=== PATIENT | female | born 1990 | race Caucasian/White ===

== ENCOUNTER 2016-06-13 22:53 | Observation (INO) | payer BC ==
[~2016-06-13] VITALS: Ht 162.6 cm; Wt 104.9 kg
[~2016-06-13 22:53] MED LIST: AZIT500T PO; CEFP200T PO; D-ME-89 PO; GUAI118L3 PO; IPRA3AMP NEB; MENT7.6L2 MM; PRED20TA PO; [UNRECOGNIZED DRUG - OTHER]
--- NOTE | 2016-06-13 23:00 | ED.ADGEN ---
Past History Past Medical History: Bronchitis, Other Past Surgical History: Other Alcohol Use: None Drug Use: None Adult General Chief Complaint Chief Complaint " I think I got something suck up my butt...".. " We were trying something new.. a rectal plug.. .. It is stainless steel... looks like a spade... .. but it got away from us.. and we can't get it out...I tried to get it out for some time now.. I could feel it with my fingers.. but it got too painful.. I was afraid I hurt myself... " HPI HPI Patient is a 25 year old female who presents with stainless steel rectal plug foreign body in her rectum. Patient complains of lower rectal pain from attempts to remove it. Patient does have a hemorrhoid and some bleeding at tear or fissure at the base of the hemorrhoid. Patient last ate food at and fluids approximately 2100 hrs. Patient denies any history of bleeding disorders or coagulopathic meds. Plug was inserted for additional stimulation during intercourse. Review of Systems Review of Systems Constitutional: Denies fever or chills [] Eyes: Denies change in visual acuity, redness, or eye pain [] HENT: Denies nasal congestion or sore throat [] Respiratory: Denies cough or shortness of breath [] Cardiovascular: No additional information not addressed in HPI [] GI: Denies abdominal pain, nausea, vomiting, bloody stools or diarrhea [] Pt. has complaints of rectal pain and foreign body : Denies dysuria or hematuria [] Musculoskeletal: Denies back pain or joint pain [] Integument: Denies rash or skin lesions [] Neurologic: Denies headache, focal weakness or sensory changes [] Endocrine: Denies polyuria or polydipsia [] Family History Family History Noncontributory Current Medications Current Medications Current Medications Medications (Trade) Dose Ordered Sig/Claude Start Time Stop Time Status Last Admin Dose Admin Lactated Ringer's (Iv Lactated Ringers) 1,000 ml @ 1,000 mls/hr Q1H 06/14/16 01:00 Morphine Sulfate (Morphine 10mg Syringe) 10 mg 1X ONCE 06/14/16 01:00 06/14/16 01:01 DC 06/14/16 01:58 10 MG Ondansetron HCl (Zofran) 4 mg 1X ONCE 06/14/16 01:00 06/14/16 01:01 DC 06/14/16 01:58 4 MG Allergies Allergies Allergies Coded Allergies Type Severity Reaction Last Updated Verified No Known Drug Allergies 10/04/15 No Physical Exam Physical Exam Constitutional: Moderate emotional distress, non-toxic appearance. [] HENT: Normocephalic, atraumatic, bilateral external ears normal, oropharynx moist, no oral exudates, nose normal. [] Eyes: PERRLA, EOMI, conjunctiva normal, no discharge. [] Neck: Normal range of motion, no tenderness, supple, no stridor. [] Cardiovascular:Heart rate regular rhythm, no murmur [] Lungs & Thorax: Bilateral breath sounds clear to auscultation [] Abdomen: Bowel sounds normal, soft, no tenderness, no masses, no pulsatile masses. Obese. Old surgical scar. Hemorrhoid. Has small fissure rectal tear at base of hemorrhoid. Metal object palpable at fingertips. Skin: Warm, dry, no erythema, no rash. [] Back: No tenderness, no CVA tenderness. [] Extremities: No tenderness, no cyanosis, no clubbing, ROM intact, no edema. [] Neurologic: Alert and oriented X 3, normal motor function, normal sensory function, no focal deficits noted. [] Psychologic: Affect anxious and embarrassed, judgement normal, mood normal. [] EKG EKG [] Radiology/Procedures Radiology/Procedures My interpretation of x-ray shows no free air under diaphragm. Nonspecific bowel gas pattern. Pelvic films show metal foreign body in rectum . Some increased constipation .[] Course & Med Decision Making Course & Med Decision Making Pertinent Labs and Imaging studies reviewed. (See chart for details) Procedure note: Discussed risks and benefits of attempted removal. Pt. requests attempt at removal. No sedation or pain meds given to patient so she would be aware of any increased discomfort during attempted removal. KY gel like lubrication applied, and ring forceps used to grasp the base of rectal plug. A 28 Fr chest tube passed along side of the plug to just above it allowing easier removal. . With gentle traction a stainless steel rectal plug was removed. Pt. tolerated the procedure well. Re-exam digital of rectum showed no active bleeding. Discussed options for observation admission. Pt. declined transfer to [facility] and surgical consult at this time. Discussed presentation, testing and tx. plan with Dr. Dunlap. Will admit for observation. Pt. advised if complications arise will need transfer and surgical consult. Pt. again declined transfer and surgical consult at this time, but would agreed to transfer to [facility] if problems develop. [] Final Impression Final Impression 1. Rectal foreign body [] Problems: Dragon Disclaimer Dragon Disclaimer This electronic medical record was generated, in whole or in part, using a voice recognition dictation system. SAIMA CHENG MD Jun 13, 2016 23:00
[2016-06-14] MEDS ORDERED: MORPHINE SULFATE 10 MG/ML SYRINGE. SQ ONE (01:00)
[2016-06-14] MEDS ORDERED: IV RINGERS SOLUTION,LACTATED 1,000 ML IV SCH (01:00)
[2016-06-14] MEDS ORDERED: ONDANSETRON PF 4 MG/2 ML VIAL. IV ONE (01:00)
[2016-06-14] MEDS ORDERED: ONDANSETRON PF 4 MG/2 ML VIAL. IV PRN (01:15)
[2016-06-14 01:25] VITALS: BP 118/82
--- NOTE | 2016-06-14 01:25 | NUR ---
Pt admitted to [facility] room 120 from ER via gurney, accompanied by EMS and nursing staff. Pt here for foreign body in rectum that was removed in ER. No current rectal bleeding noted. IV started in R FA #20, labs drawn from it. Pt tolerated well. IVF started per order and pain medication given. VSS. Health history & home medications reviewed with pt. SCDs for VTE. Pt requesting pneumonia vaccine, order placed in computer. RY consulted for smoking cessation. Pt lives at home with her and 2 yrs old daughter. The patient was given written information regarding hospital policies, unit procedures and contact persons. Valuables were checked and left in room. Call light within reach.
[2016-06-14] MEDS ORDERED: MAGNESIUM HYDROXIDE 2,400 MG/30 ML ORAL.SUSP. PO ONE (01:30)
[2016-06-14] MEDS: IV RINGERS SOLUTION,LACTATED 1,000 ML IV SCH ×2 (01:59→09:17)
[2016-06-14 02:03] LABS: BASO % 0 % (0-3); EOS # 0.2 x10^3/uL (0.0-0.7); EOS % 1 % (0-3); HEMATOCRIT 44.4 % (36.0-47.0); HEMOGLOBIN 14.8 g/dL (12.0-15.5); LYMPH # 3.9 x10^3/uL (1.0-4.8); LYMPH % 31 % (24-48); MEAN CORPUSCULAR HEMOGLOBIN 28 pg (25-35); MEAN CORPUSCULAR HGB CONC 33 g/dL (31-37); MEAN CORPUSCULAR VOLUME 83 fL (79-100); MONO # 0.6 x10^3/uL (0.0-1.1); MONO % 5 % (0-9); NEUT # 7.9 x10^3uL (1.8-7.7); NEUT % 63 % (31-73); PLATELET COUNT 285 x10^3/uL (140-400); RED BLOOD COUNT 5.36 x10^6/uL (3.50-5.40); RED CELL DISTRIBUTION WIDTH 14.2 % (11.5-14.5); WHITE BLOOD COUNT 12.6 x10^3/uL (4.0-11.0)
[2016-06-14 02:30] LABS: CALCIUM 8.7 mg/dL (8.5-10.1); CREATININE 0.8 mg/dL (0.6-1.0); POTASSIUM 3.7 mmol/L (3.5-5.1)
[2016-06-14] MEDS ORDERED: ESOM40CA47 PO (03:07)
[2016-06-14] MEDS ORDERED: GABA100C6 PO (03:07)
[2016-06-14 05:50] VITALS: BP 112/71
--- NOTE | 2016-06-14 07:13 | RAD ---
Pelvis, 2 views, 06/14/2016: History: Check for foreign body There is a 7 x 3 cm radiopaque foreign body projected over the rectum. The abdominal gas pattern is unremarkable. No bony abnormality is detected. IMPRESSION: Moderate sized radiopaque rectal foreign body.
--- NOTE | 2016-06-14 07:14 | RAD ---
Acute abdomen series with chest, 3 views, 06/14/2016: History: Post foreign body removal, check for free air. The previously seen radiopaque foreign body in the rectum has been removed. There is gas and stool scattered throughout the colon in a nonspecific pattern. No free air seen in the abdomen. There is no evidence of organomegaly. Lower pelvic calcifications are probably phleboliths. The heart size is normal. The lungs are clear. There is no evidence of pleural fluid. IMPRESSION: 1. Interval removal of the rectal foreign body. 2. No acute abdominal abnormality is detected.
[2016-06-14] MEDS ORDERED: PNEUMOC CONJ VACC 23-VALENT 0.5 ML VIAL. VAX IM ONE (09:00)
--- NOTE | 2016-06-14 09:33 | RAD ---
Acute abdomen series History: Evaluate for free air. Comparison: 06/14/2016. Findings: Frontal view of the chest. Cardiac silhouette appears within normal limits for size. No pneumoperitoneum or pneumothorax is identified. There is interval development of mild density in the right middle lobe. Supine and upright views of the abdomen. No dilated loops of bowel are seen. Mild-moderate stool is present. Impression: 1. Mild right middle lobe density, could represent atelectasis versus developing pneumonia. Recommend correlation with respiratory symptoms. 2. No evidence of pneumoperitoneum.
[2016-06-14 11:49] VITALS: BP 109/67
--- NOTE | 2016-06-14 15:04 | SSS ---
ADMIT DATE: 06/14/2016 DISCHARGE DIAGNOSES: 1. Foreign body in rectum. 2. Removal of foreign body from the rectum by Emergency Room doctor. 3. Recent history of pneumonia. 4. Gastroesophageal reflux disease. 5. Tobacco use disorder. BRIEF HOSPITAL STAY: This 25-year-old female, who was using a rectal plug, which is a sex toy and the plug got further up into her rectum to the point where she could not retrieve it. She began to panic and had some pain and came to the Emergency Room. The rectal plug was removed by the Emergency Room doctor and she was admitted for observation. PAST MEDICAL HISTORY: She had recent pneumonia. She has sleep apnea, tobacco use disorder. MEDICATIONS: Gabapentin 100 mg q.8 hours and esomeprazole 40 mg daily. ALLERGIES: None. FAMILY HISTORY: Father with diabetes, hypertension, and high cholesterol. SOCIAL HISTORY: Works as unit clerk. REVIEW OF SYSTEMS: Currently negative. The patient has no further pain now that the rectal plugged has been removed. OBJECTIVE: VITAL SIGNS: Blood pressure 109/67, pulse 79, respirations 19, and pulse ox 96% on room air. HEENT: Hearing is normal. Eyes are clear. Nose was patent. Throat was clear. NECK: Supple, without adenopathy. LUNGS: Clear to auscultation. CARDIOVASCULAR: Regular rhythm and rate. ABDOMEN: Soft, nontender. EXTREMITIES: Without edema. EXTERNAL RECTAL: Negative for hemorrhoids, fissures or bleeding. HOSPITAL COURSE: X-rays were reviewed and successful removal of the plug was observed on the x-ray and the patient has some residual changes on her x-ray from pneumonia, but she is being followed for this. PLAN: Discussed the sensitivity of the anal area and the need to be careful this area. Encouraged to quit smoking, may return to work tomorrow. MEDICATIONS: Reconciled. JOSE ALICEA DO DR: JAY/froilan JOB#: [id number] / [id number]
--- NOTE | 2016-06-16 17:02 | PATHOLOGY ---
PATHOLOGY REPORT * * * * * * * * FINAL DIAGNOSIS: Foreign body, clinically from rectum. (GROSS ONLY) (JPM:csd; d/t: 06/16/2016) REPORT ELECTRONICALLY SIGNED BY: Lionel Payne M.D. DATE/TIME: 06/16/2016 17:01 * * * * * * * * GROSS PATHOLOGY: The specimen is received fresh, labeled "Robby Terry," and additionally labeled on the requisition as, "foreign body removed from rectum". Received is a spade-shaped segment of silver metal measuring 6.3 x 3.2 x 3.2 cm in greatest dimensions. A gross photograph is taken. Sections are not submitted. (CAA; 06/16/2016) INITIAL CPT CODE(S): A; 64002 Professional services performed [place] [address] Technical services performed by [facility] at [address] [place] [address]. SPECIMEN(S) RECEIVED: A.Gross only CLINICAL HISTORY: Foreign body (object) removed from rectum in ER PATIENT: ROBBY TERRY /AGE: 810/15/1990 (Age: 25) PATIENT #: [id number] ALT CASE #: SPECIMEN COLLECTION DATE: 06/15/2016 SPECIMEN RECEIVED DATE: 06/15/2016 [facility] - [address] [place] [address] - PHONE: [phone] * * * END OF REPORT * * *
== END 2016-06-14 13:00 | disposition home or self-care (01) ==
LOC: ER 22:57 → 1 SOUTH 06-14 01:10
PROVIDERS: ADMIT Internal Medicine; ATTEND Internal Medicine
DX: T18.5XXA Foreign body in anus and rectum, initial encounter (principal); K21.9 Gastro-esophageal reflux disease without esophagitis; G47.30 Sleep apnea, unspecified; K64.9 Unspecified hemorrhoids; Z72.0 Tobacco use; Z87.01 Personal history of pneumonia (recurrent); Z82.49 Family history of ischemic heart disease and other diseases of the circulatory system; Z83.3 Family history of diabetes mellitus; X58.XXXA Exposure to other specified factors, initial encounter; Y93.89 Activity, other specified; Y92.89 Other specified places as the place of occurrence of the external cause; Y99.8 Other external cause status; Z23 Encounter for immunization
CPT/HCPCS: 36415; 72170; 74022; 80048; 82150; 83690; 85027; 85610; 85730; 90471; 90732; 96361; 96372; 96374; 99285; G0378; J2270; J2405; J7120; G0379

== ENCOUNTER → 2016-07-15 | Outpatient (CLI) | payer BC ==
[~2016-07-15] MED LIST changes: +ESOM40CA47 PO; +GABA100C6 PO
--- NOTE | 2016-07-15 08:15 | RAD ---
Left foot, 3 views, 07/15/2016: History: Foot pain and swelling No fracture or dislocation is identified. There is mild subcutaneous edema. IMPRESSION: No acute bony abnormality is detected.
== END | disposition home or self-care (01) ==
LOC: DXRADRC 07:51
PROVIDERS: ATTEND Physician Assistant
DX: M79.672 Pain in left foot (principal); R60.0 Localized edema
CPT/HCPCS: 73630

== ENCOUNTER → 2020-06-17 | Outpatient (CLI) | payer BC ==
[~2020-06-17] MED LIST changes: -IPRA3AMP NEB; +IPRA3AMP29 NEB
--- NOTE | 2020-06-17 18:38 | RAD ---
XR CHEST 2V Technique: PA and lateral views of the chest were obtained. Clinical History: Reason: Chest pain, cough, congestion / Spl. Instructions: / History: Comparison: None. Findings: The heart is normal in size. The pulmonary vessels appear normal. There is perihilar and basilar line ar opacities. The pleural margins are clear. Impression: Mild bilateral infiltrates likely secondary to atypical pneumonia. Electronically signed by: Spencer Roman III, MD (06/17/2020 6:35 PM) [facility]
== END ==
LOC: RAD 18:04
PROVIDERS: ATTEND Nurse Practitioner Family
DX: R91.8 Other nonspecific abnormal finding of lung field (principal); J06.9 Acute upper respiratory infection, unspecified; R05 Cough
CPT/HCPCS: 71046

== ENCOUNTER → 2020-08-09 | Outpatient (CLI) | payer BC ==
--- NOTE | 2020-08-09 10:55 | RAD ---
Study: XR CHEST 2V Indication: Cough. Comparison: 06/17/2020 Findings: No confluent airspace infiltrate. The aeration pattern of the lungs is similar to the 06/17/2020 compar bennett. No pleural effusion or pneumothorax. Unchanged cardiomediastinal silhouette and juany. Impression: No radiographic evidence for an organizing pneumonia. The appearance of the lungs is similar to the comparison. Electronically signed by: STEPHANIE SHAH MD (08/09/2020 10:52 AM) [id number]
== END ==
LOC: RAD 09:43
PROVIDERS: ATTEND Nurse Practitioner Family
DX: R05 Cough (principal)
CPT/HCPCS: 71046

== ENCOUNTER → 2021-02-27 | Outpatient (CLI) | payer BC ==
--- NOTE | 2021-02-27 16:52 | RAD ---
XR KNEE _3 VIEWS_LT History: Reason: KNEE PAIN AND SWELLING TO ANKLE, NO KNOWN INJURY / Spl. Instructions: / History: Technique: 3 views left knee Comparison: None. Findings: No dislocation. No acute fracture. No significant knee joint effusion. Impression: 1. No acute osseous abnormalities. Electronically signed by: Caio Abarca DO (02/27/2021 4:50 PM) [id number]
== END ==
LOC: RAD 10:56
PROVIDERS: ATTEND Physician Assistant Medical
DX: M25.562 Pain in left knee (principal)
CPT/HCPCS: 73562